=== PATIENT | female | born 1945 | race Caucasian/White ===

== ENCOUNTER 2018-02-25 08:22 | Outpatient (CLI) | payer MEDICARE ==
--- NOTE | 2018-02-25 10:17 | RAD ---
LUMBAR SPINE 3 VIEWS: HISTORY: A 72-year-old female with a history of lumbar radiculopathy, low back pain for many years. Prior lum bar surgery. FINDINGS: Laminectomy and pedicle screw placement changes at L4-L5. Multilevel disk-osteophytosis. No abnorma l translation between flexion and extension. IMPRESSION: Pedicle screws and laminectomy at L4-L5. Multilevel spondylosis. POS: [facility]
--- NOTE | 2018-02-25 12:15 | MRI ---
MRI LUMBAR SPINE WITH AND WITHOUT CONTRAST: Technique: Multiplanar, multisequence MRI images were obtained of the lumbar spine. Post contrast enoch ges were obtained with administration of 18 cc MultiHance IV. Indications: Low back pain. Lumbar surgery in 2000. Comparison: None. FINDINGS: Lumbar vertebrae maintain height and alignment. Degenerative disc and endplate changes are seen at al l levels of the lumbar spine. Pedicle screws are in place at L4 and L5. Posterior laminectomy changes at L3-4, L4-5, and L5-S1 levels. L1-2: There is a broad based disc bulge flattening the thecal sac. Facet hypertrophy. Mild central ca nal stenosis. L2-3: Diffuse disc bulge with prominent facet hypertrophy. Mild to moderate central canal stenosis. L3-4: Broad based disc bulge. Facet hypertrophy compressing the thecal sac. Moderate central canal st enosis. Pedicle screws at L4. L4-5: No disc bulge or protrusion. No significant central canal stenosis. Six pedicle screws at L5. L5-S1: There is an annular fissure with a broad based disc protrusion abutting the thecal sac. Promin ent facet hypertrophy. Mild to moderate central canal stenosis. Bilateral foraminal stenosis. There is abnormal signal in the anterior spinal canal seen throughout the lumbar spine but most promi nent at L1, L2, and L3. At L3 this signal compressed the anterior thecal sac bilaterally. It does saeid w enhancement. It appears to represent a prominent venous plexus, possibly due to engorgement of the venous plexus from the central canal stenosis and post-operative change in the lower lumbar spine. Th e enhancement would exclude other processes such as epidural abscess or hematoma. IMPRESSION: Degenerative disc changes at all levels of the lumbar spine with post-operative changes at L4 and L5 as described above. POS: [facility]
[2018-02-25] MEDS ORDERED: Gadobenate Dimeglumine 529 MG/1 ML (20ML VIAL) ONE (16:49)
== END 2018-02-25 08:23 | disposition home or self-care (01) ==
LOC: TBSIIMAG 08:22
PROVIDERS: ATTEND Neurological Surgery
DX: M47.26 Other spondylosis with radiculopathy, lumbar region (principal); M51.16 Intervertebral disc disorders with radiculopathy, lumbar region; Z98.890 Other specified postprocedural states
CPT/HCPCS: 72100; 72158; 82565; A9579